=== PATIENT | male | born 1955 | race Caucasian/White ===

== ENCOUNTER → 2021-08-31 | Outpatient (CLI) | payer BC, OTHER | LOC: NM 08-12 13:00 | DX: I25.119 Atherosclerotic heart disease of native coronary artery with unspecified angina pectoris (principal); R06.02 Shortness of breath; R07.9 Chest pain, unspecified; I10 Essential (primary) hypertension; R55 Syncope and collapse | CPT/HCPCS: 78452; 93017; A9502; J2785 ==